=== PATIENT | female | born 1965 | race Hispanic/Latino ===

== ENCOUNTER 2016-07-09 17:01 | Outpatient (CLI) | payer MEDICARE, MEDICAID | END 2016-07-09 17:02 | disposition home or self-care (01) | LOC: HPCALD 17:01 | PROVIDERS: ATTEND Family Medicine | DX: Z01.419 Encounter for gynecological examination (general) (routine) without abnormal findings (principal) ==

== ENCOUNTER 2016-11-21 10:42 | Outpatient (CLI) | payer MEDICARE, MEDICAID ==
[2016-11-21 12:11] LABS: Free T4 (Free Thyroxine) 0.64 ng/dL (0.70-1.48); Thyroid Stimulating Hormone 5.2069 uIU/mL (0.35-4.94)
== END 2016-11-21 10:43 | disposition home or self-care (01) ==
LOC: HPCALD 10:42
PROVIDERS: ATTEND Family Medicine
DX: E89.0 Postprocedural hypothyroidism (principal)
CPT/HCPCS: 36415; 84439; 84443

== ENCOUNTER 2016-12-12 12:07 | Outpatient (CLI) | payer MEDICARE, MEDICAID | END 2016-12-12 12:08 | disposition home or self-care (01) | LOC: HPCALD 12:07 | PROVIDERS: ATTEND Family Medicine | DX: N76.1 Subacute and chronic vaginitis (principal) | CPT/HCPCS: 87480; 87491; 87510; 87591; 87660 ==